=== PATIENT | male | born 1995 | race African-American/Black ===

== ENCOUNTER 2019-05-20 14:01 | Emergency (ER) | payer OTHER, MEDICAID ==
[~2019-05-20] VITALS: Ht 167.6 cm; Wt 90.7 kg
[2019-05-20 15:33] VITALS: BP 155/90
[2019-05-20] MEDS ORDERED: IBUPROFEN 800 MG TAB PO ONE (16:00)
[2019-05-20] MEDS ORDERED: METHOCARBAMOL 500 MG TAB PO ONE (16:00)
== END 2019-05-20 17:24 | disposition home or self-care (01) ==
LOC: ER 14:01
DX: S29.011A Strain of muscle and tendon of front wall of thorax, initial encounter (principal); S80.01XA Contusion of right knee, initial encounter; Z91.013 Allergy to seafood; V49.9XXA Car occupant (driver) (passenger) injured in unspecified traffic accident, initial encounter; Y93.89 Activity, other specified; Y92.89 Other specified places as the place of occurrence of the external cause; Y99.8 Other external cause status
CPT/HCPCS: 71046; 73562

== ENCOUNTER → 2020-08-14 04:23 | Emergency (ER) | payer MEDICAID ==
[~2020-08-14] VITALS: Ht 167.6 cm; Wt 99.8 kg
[~2020-08-14 04:23] MED LIST: EPINEPHrine HCL 1 MG/10 ML SYRG IV ONE; SODIUM BICARBONATE 8.4 % INJ 50ML VIAL IV ONE
[2020-08-14 04:28] VITALS: BP 0/0
== END ==
LOC: EDUNIT# 04:13 → ER 04:23 → EDBD 04:23
DX: I46.9 Cardiac arrest, cause unspecified (principal); F15.10 Other stimulant abuse, uncomplicated; Z91.013 Allergy to seafood
CPT/HCPCS: 92950; 99285; J0171